=== PATIENT | female | born 1990 | race Caucasian/White ===

== ENCOUNTER 2017-09-29 05:13 | Inpatient (IN) ==
[2017-09-29] MEDS ORDERED: LIDOCAINE 1% (10mg/ml) 2mL INJ PF SDV ID PRN (07:52)
[2017-09-29] MEDS ORDERED: MAG-AL + SIM ORAL LIQUID 30ml PO PRN ×2 (07:52→19:09)
[2017-09-29] MEDS ORDERED: CALCIUM CARBONATE Chewable 500mg TABLET PO PRN ×2 (07:52→19:09)
[2017-09-29] MEDS ORDERED: METHYLERGONOVINE 0.2 MG/ML INJECTION IM PRN (07:52)
[2017-09-29] MEDS ORDERED: ACETAMINOPHEN 500 MG TABLET PO PRN ×2 (07:52→19:09)
[2017-09-29] MEDS ORDERED: CARBOPROST 250 MCG/ML INJECTION IM PRN (07:52)
[2017-09-29] MEDS: LR 1,000 ML IV PRN ×3 (08:45→12:30)
[2017-09-29 08:51] VITALS: BMI 40.2
[2017-09-29] MEDS ORDERED: OXYTOCIN DRIP 30 UNIT/500 ML ML IV PRN (09:51)
[2017-09-29] MEDS ORDERED: D5LR 1,000 ML IV PRN (09:51)
--- NOTE | 2017-09-29 09:51 | Anesthesia Preoperative Report ---
Anesthesia Epidural/Spinal Rec - Date and Time Date: 09/29/17 Preoperative Diagnosis: g3, p2, 38+6 Procedure: Labor Epidural Plan: Epidural - Vital Signs NPO since: before mn /Para: P:2 Heart Rate: 140 - Medictaions & Allergies Inpatient Medications: Current Medications Acetaminophen (Tylenol) 500 - 1,000 mg PO Q4H PRN PRN Reason: Pain Al Hydroxide/Mg Hydroxide (Maalox Plus) 30 ml PO Q3H PRN PRN Reason: Indigestion Calcium Carbonate (Tums) 500 - 1,000 mg PO Q2H PRN PRN Reason: Indigestion Carboprost Tromethamine (Hemabate) 250 mcg IM O PRN PRN Reason: .Downtime Lactated Ringer's (Lactated Ringers) 1,000 mls @ 999 mls/hr IV .Q1H1M PRN Last Admin: 09/29/17 08:45 Dose: 999 mls/hr Lidocaine HCl (Xylocaine-Mpf 1% Vial) 0.2 mg ID O PRN PRN Reason: IV Start Methylergonovine Maleate (Methergine) 0.2 mg IM O PRN Misoprostol (Cytotec) 800 mcg IN ONCE PRN Allergies/Adverse Reactions: Allergies Allergy/AdvReac Type Severity Reaction Status Date / Time Latex, Natural Rubber Allergy Unknown Verified 09/29/17 06:55 - Home Medications Home Medications: Home Medications Medication Instructions Recorded Confirmed Type Labetalol [Normodyne] 200 mg PO BID 09/29/17 09/29/17 History Vitamin Tab [Brad 1 tab PO 09/29/17 History ] Ranitidine [Zantac] 1 tab PO BID 09/29/17 09/29/17 History - Medical History Respiratory: Reports: Asthma (mild ), Bronchitis (as child) DENIES: Pneumonia Cardiovascular: Reports: Other (tachycardia, takes labetalol, been seen by chemistry associate found nothing) DENIES: Heart Murmur, Hypertension, Hypotension Gastrointestional: Reports: Gastroesophageal Reflux Disease (takes zantac) DENIES: Hepatitis, Nausea or Vomiting Present Neuro/Musculoskeletal: Reports: Depression (anxiety ), Other (fibromyalgia, generalized pain, numbness in legs and hips in the past ) Denies: Cerebrovascular Accident Renal/Endocrine: DENIES: Diabetes Mellitus Type 1, Thyroid Disease Other History: Reports: Anesthesia Reactions, Now DENIES: Blood Transfusions - Surgical History GI Surgery/Treatments: Reports: EGD Reproductive Surgery/Treatment: DENIES: Section Hx Family Anesthesia Reaction: Yes (mom hard to wake up ) - Social History Smoking Status: Former smoker - Pertinent Findings Lab Data: CBC and BMP 09/29/17 08:01 - Physical Exam Respiratory Exam: lungs clear, bilateral breath sounds equal Cardiovascular Exam: regular rate and rhythm, no murmur - Airway Assessment Mallampati Score: II TMD: 3 Fingerbreadths Neck Extension: good Overall Assessment: may be difficult intubation - ASA ASA Score: 3 - Discussion Discussion: Discussed risks/options/alternatives of anesthesia and questions answered. Patient consents. Nursing pain assessment noted. Attestation Statement: Prior to the delivery of any anesthetic medication, I examined the patient, developed the plan, obtained the patient's consent and discussed the risk and benefits of the procedure with the patient/guardian.
[2017-09-29] MEDS ORDERED: DiphenhydrAMINE 50 MG/ML INJECTION IVP PRN (09:52)
[2017-09-29] MEDS ORDERED: ROPIVACAINE 1% 10MG/ML INJ 200 MG, SUFentanil 50 MCG in NS 100 ML EPI PRN (09:52)
[2017-09-29] MEDS ORDERED: ONDANSETRON 4 MG/2 ML INJECTION IVP PRN (09:52)
[2017-09-29] MEDS ORDERED: NALOXONE 0.4 MG/ML INJECTION IVP PRN (09:52)
[2017-09-29] MEDS ORDERED: LIDOCAINE 1.5% W/EPI 1:200,000 30ml SDV PF ONE (16:58)
[2017-09-29] MEDS ORDERED: HYDROCORTISONE 2.5% CREAM 30gm RECTALLY PRN (19:09)
[2017-09-29] MEDS ORDERED: DiphenhydrAMINE 25 MG CAPSULE PO PRN (19:09)
[2017-09-29] MEDS: OXYTOCIN DRIP 30 UNIT/500 ML ML IV SCH (20:37)
[2017-09-29 21:09] VITALS: RESP 16
[2017-09-29] MEDS: IBUPROFEN 800 MG TABLET PO PRN (21:16)
[2017-09-29] MEDS: HYDROCODONE/APAP 5mg/325mg TABLET PO PRN (21:41)
[2017-09-30] MEDS: OXYTOCIN DRIP 30 UNIT/500 ML ML IV SCH ×3 (02:02→16:48)
[2017-09-30] MEDS: HYDROCODONE/APAP 5mg/325mg TABLET PO PRN ×4 (02:05→16:47)
[2017-09-30] MEDS: DOCUSATE CALCIUM 240 MG CAPSULE PO SCH ×2 (07:40→10:19)
[2017-09-30] MEDS: IBUPROFEN 800 MG TABLET PO PRN (07:40)
--- NOTE | 2017-09-30 07:46 | Labor and Delivery Note ---
DATE OF DELIVERY: 09/29/2017 DIAGNOSES 1. 27-year-old white female, G6, P2, at 38.5 weeks gestational age. 2. Spontaneous labor. 3. Labetalol for maternal tachycardia. 4. Artificial rupture of membranes. 5. Epidural anesthesia. 6. Pitocin augmentation. 7. Intrauterine pressure monitor. 8. Spontaneous vaginal delivery. 9. Female , Apgars, 3680 g (8 pounds 2 ounces) (Martha Aguilar). BRIEF DESCRIPTION This is a patient of Dr. William that transferred [facility] later in . She has been in multiple times. This morning she was in complaining of contractions. Her cervix was initially 3 cm dilated and in a couple of hours had changed to 4 cm, so she was admitted in labor. After she was admitted AROM occurred at 0825 hours. Then the cervix stopped changing, so Pitocin augmentation was started. It reached a maximum of 20 milliunits a minute. The patient decided after all she wanted an epidural block , so that was placed. The patient stalled out again at 6.5 cm, so an IUPM was placed. Eventually she made it to complete dilation. Her block was redosed. Then she had a spontaneous vaginal delivery shortly after starting to push. Infant was bulb suctioned after delivery of the head and then again after delivery of the body. Cord was doubly clamped and cut and the 's mother cut the cord. The cord was allowed to drain for a couple of minutes before clamping. The placenta delivered spontaneously and was intact. Perineum was intact. EBL was 250. Group B strep negative. Rubella immune and maternal blood type O+ . At the time of dictation mother and are doing well. [facility]
--- NOTE | 2017-09-30 12:06 | Progress Note ---
OB PP Progress Note Free Text - Date Date: 09/30/17 - Progress Note Progress Note: vss af doing well desires dc if baby dc'd q&a
--- NOTE | 2017-09-30 15:11 | Anesthesia Postoperative Note ---
- Date and Time Date: 09/30/17 Time: 15:09 - Status Patient Participated in Evaluation: Patient Participated in Person Vital Signs: Temperature 98.2 F 09/30/17 10:53 Pulse Rate 70 09/30/17 10:53 Respiratory Rate 16 09/30/17 10:53 Blood Pressure 95/50 09/30/17 10:53 Pulse Oximetry 98 09/30/17 10:53 Respiratory Function: Airway Patent, Regular Respirations Cardiovascular Function: Regular Pulse Mental Status: Alert and Oriented Pain Intensity: 5 (back soreness) Hydration: Taking PO Fluids Complications During Recover: None Apparent Post Anesthesia Care Notes: ambulating without problems - Follow-Up Instructions Instructions: Per Surgeon
[2017-09-30 19:52] VITALS: BP 106/58; PULSE 81; TEMP 98.1; O2SAT 97
== END 2017-09-30 19:36 | disposition home or self-care (01) | DRG 775 ==
LOC: OBOBS 05:13 → MC 07:11
PROVIDERS: ADMIT Obstetrics & Gynecology; ATTEND Obstetrics & Gynecology